=== PATIENT | female | born 1940 | race Caucasian/White ===

== ENCOUNTER 2017-02-15 17:54 | Inpatient (IN) | payer MEDICARE ==
[~2017-02-15] VITALS: Ht 165.1 cm; Wt 56.4 kg
[2017-02-15 17:56] VITALS: BP 146/80; PULSE 78; RESP 20; O2SAT 94
[2017-02-15] MEDS ORDERED: 0.9% Sodium Chloride 1,000 ML IV ONE (18:04)
--- NOTE | 2017-02-15 18:04 | ED.REPORT ---
HPI-General Illness Date of Service February 15, 2017 ED Provider: Dr. Cody Vance The patient is a 76 year old female who presents to the ED via EMS accompanied by her daughter after a suicide attempt 2 days ago. The pt took 800 500 mg acetaminophen tablets approximately 36 hrs ago. EMS was called after she disclosed this information to her family. She initially refused to come into the ED and had to be persuaded by medics, police, and family. Pt states the suicide attempt was due to chronic pain issues. She had trouble refilling her hydrocodone dosage that she has been receiving for 10 years. C/o associated nausea, vomiting, and right sided rib pain due to 5 broken ribs from a recent fall. Pt is a retired MD. Nursing Notes Stated Complaint: SUICIDAL IDEATION Chief Complaint: Psychiatric Complaint Nursing Notes Reviewed: Yes Allergies: Coded Allergies: amoxicillin (Verified Allergy, Severe, Anaphylaxis, 02/15/17) diclofenac (Verified Allergy, Severe, Shortness of Breath, 02/15/17) propranolol (Verified Allergy, Severe, Anaphylaxis, 02/15/17) venom-wasp (Verified Allergy, Severe, Shortness of Breath, 02/15/17) cephalexin (Verified Allergy, Unknown, 02/15/17) Quinolones (Verified Adverse Reaction, Severe, tENDONITIS, 02/15/17) Sulfa (Sulfonamide Antibiotics) (Verified Adverse Reaction, Severe, Rash, 02/15/17) hydromorphone (Verified Adverse Reaction, Severe, Restless leg syndrome, ) immune globulin,gamma (IgG) human (Verified Adverse Reaction, Severe, Restlessness, 02/15/17) latex (Verified Adverse Reaction, Severe, Rash, 02/15/17) oxycodone (Verified Adverse Reaction, Severe, Hallucinations, 02/15/17) pentosan polysulfate sodium (Verified Adverse Reaction, Severe, Diarrhea, 02/15/17) NSAIDS (Non-Steroidal Anti-Inflamma (Verified Adverse Reaction, Unknown, Shortness of Breath, 02/15/17) meloxicam (Verified Adverse Reaction, Unknown, Bowel & Bladder Incontinence, 02/15/17) Scheduled Buspirone (Buspirone) 10 Mg Tablet 10 MG PO BID AM AND PM Calcitriol (Rocaltrol) 0.25 Mcg Capsule 0.25 MCG PO QAM Clonazepam (Clonazepam) 0.5 Mg Tablet 0.5 MG PO TIDWM AM, NOON, EVENING Fluoxetine (Fluoxetine) 10 Mg Capsule 10 MG PO QAM Gabapentin (Gabapentin) 100 Mg Capsule 200 MG PO TID AM, PM, HS Hydrocodone-Acetaminophen 10-325 mg (Hydrocodone-Acetaminophen 10-325 mg) 1 Each Tablet 2 TABLET PO TID AM, NOON, HS Metoclopramide (Metoclopramide) 5 Mg Tablet 5 MG PO BID AM AND PM Modafinil (Modafinil) 200 Mg Tablet 100 MG PO BIDBL AM AND NOON Omeprazole (Omeprazole) 20 Mg Capsule.dr 20 MG PO QAM Prazosin (Prazosin) 2 Mg Capsule 4 MG PO TID AN, NOON, HS Prednisone (PredniSONE) 5 Mg Tab 7.5 MG PO DAILYWM Progesterone,Micronized (Progesterone) 100 Mg Capsule 100 MG PO QAM Thyroid,Pork ([place] Thyroid) 90 Mg Tablet 90 MG PO QAM Zolpidem (Zolpidem) 5 Mg Tablet 5 MG PO HS General Time Seen by MD: 17:50 Chief Complaint Other (suicide attempt) Hx Obtained From: Patient Arrived By: Ambulance Sudden in Onset?: Yes Onset Occurred: 2 days ago (36 hrs) Context of Onset: Other (acetominophin overdose) Symptom Duration: Since onset Location: : Abdomen (right thoracic) Quality: Painful Severity: Current: Mild Recent Healthcare: No recent doctor visit, No recent hospitalization Similar Sx Previous: No Past Medical History Past Medical History denies Past Surgical History denies Smoking History Unknown if Ever Smoker Social History Other Social History: Local resident Ambulatory Status Independent Review of Systems Full Review of Systems Constitutional: Denies: Chills, Fever Respiratory: Denies: Shortness of breath Cardiovascular: Denies: Chest pain GI: Reports: Abdominal pain, Nausea, Vomiting, Denies: Diarrhea Musculoskeletal: Reports: Thoracic pain (right sided rib pain) Psychiatric: Reports: Depression, Suicidal ideation Complete sys rev & neg: except as marked. Physical Exam Vital Signs Vital Signs Date Time Temp Pulse Resp B/P Pulse Ox O2 Delivery O2 Flow Rate FiO2 02/15/17 17:56 37.1 78 20 146/80 94 Room Air Initial VS: Reviewed General/Constitutional: Awake, Alert, Cooperative Head / Eyes: Normocephalic, PERRL Neck: Supple Respiratory / Chest: Atraumatic, Breath sounds = bilat, No respiratory distress Cardiovascular: Heart rate NL, Regular rhythm Heart Sounds / Murmur: Positive: Systolic murmur present.. Abdomen: BS normoactive Upper Extremities Upper Extremity / MS: Full range of motion, No deformity Lower Extremity / Pelvis / MS: Full range of motion, No deformity Neurologic: Oriented X3, Speech NL, No motor deficits, No sensory deficits Psychiatric: Affect NL, Mood NL, Judgment/insight NL appopriate good affect Interpretation & Diagnostics Lab Results Interpretation Result Diagram: 02/15/17 1800 02/15/17 1800 Test 02/15/17 18:00 02/15/17 19:10 White Blood Count 5.2th/mm3 (3.8-10.1) Red Blood Count 3.30mil/mm3 (3.90-5.20) Hemoglobin 11.2g/dL (12.0-15.6) Hematocrit 32.4% (35.0-46.0) Mean Corpuscular Volume 98.2fL (81-100) Mean Corpuscular Hemoglobin 33.9pg (27.0-35.0) Mean Corpuscular Hemoglobin Concent 34.6% (32.0-37.0) Red Cell Distribution Width 15.6% (12.3-15.4) Platelet Count 318bil/L (150-400) Prothrombin Time 15.2sec (8.1-12.5) Prothromb Time International Ratio 1.41ratio Sodium Level 129mEq/L (134-144) Potassium Level 3.6mEq/L (3.5-5.2) Chloride Level 95mEq/L (97-108) Carbon Dioxide Level 18mmol/L (18-29) Blood Urea Nitrogen 15mg/dL (8-27) Creatinine 0.52mg/dL (0.57-1.00) Estimat Glomerular Filtration Rate 165mL/min (>59) Glucose Level 91mg/dL (60-99) Calcium Level 8.3mg/dL (8.5-10.1) Total Bilirubin 0.8mg/dL (0.0-1.2) Aspartate Amino Transf (AST/SGOT) 2719U/L (0-50) Alanine Aminotransferase (ALT/SGPT) 1609U/L (0-32) Alkaline Phosphatase 59U/L (25-165) Total Protein 5.5g/dL (6.4-8.4) Albumin 3.2g/dL (3.4-5.0) Hold Aldana Top Tube Received (Received) Salicylates Level < 3.0ug/mL (30-250) Acetaminophen Level 109.0ug/mL Rx (10-25) Alcohols < 10mg/dL (0-10) Hold Urine Received (Received) Lab Results Interpretation: UA positive for benzos, opiates, and oxycodone ECG Interpretation ECG Interpretation: LVH Time: 18:29 Interpreted by: ED physician Normal ECG Interpretation: Normal sinus rhythm (rate 69), No acute ischemic changes X-Ray Chest Interpretation Chest Xray Interpretation: IMPRESSION: No acute process. Right-sided rib fractures. Dictated by: Hans Beckford M.D. on 02/15/2017 at 20:24 Approved by: Hans Beckford M.D. 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 The history related is of a massive overdose. Her current clinical condition with modest elevations in transaminases suggests either less was ingested or a more recent ingestion. We have contacted poison control, and acetylcysteine was initiated immediately after the patient was evaluated to be admitted to the hospitalist service for further medical evaluation and will require psychiatric evaluation following this. Time of Eval: 18:06 Re-Evaluation/Progress Note: Pharmacy was called immediately after pt interview. Loading dose of acetylcysteine ordered. Consultation #1: Call Returned at: 19:33 Note: Case discussed with poison control. ([phone]) Plan to admit. Consultation #2: Referral / Consult Name: Gabriella Moseley DO Consulted With: Hospitalist Call Returned at: 20:00 Client Leader: Accepts admit Note: Case discussed. Dr. Moseley accepts admit patientl Counseled Regarding: Diagnosis, Lab results, Need for admission Discharge & Departure Primary Impression: Suicide attempt by acetaminophen overdose Encounter type: initial encounter Qualified Code: T39.1X2A - Poisoning by 4- Aminophenol derivatives, intentional self-harm, initial encounter Disposition: ADMITTED TO HOSPITAL Discharge Condition All VS Reviewed: Yes Condition: Stable Referrals: Batsheva Busby MD (PCP) Chely Attestation Portion of this note were transcribed by Rut Bhatt. I, , personally performed the history, physical exam, and medical decision-making: I reviewed and confirmed the accuracy for the information in the transcribed note. Signed by: chely Stacy, 02/15/17 2000 copies to: Batsheva Busby MD, Donald L MD February 15, 2017 18:04 Rut Bhatt February 15, 2017 18:10
[2017-02-15] MEDS ORDERED: Ondansetron 2 mg/mL 2 mL Inj IVPUSH ONE (18:05)
[2017-02-15] MEDS ORDERED: PRAZ2CAP2 PO (18:15)
[2017-02-15] MEDS ORDERED: MODA200T41 PO (18:15)
[2017-02-15] MEDS ORDERED: ZOLP5TAB6 PO (18:15)
[2017-02-15] MEDS ORDERED: FLUO10CA20 PO (18:15)
[2017-02-15] MEDS ORDERED: BUSP10TA2 PO (18:15)
[2017-02-15] MEDS ORDERED: HYDR-3740 PO (18:15)
[2017-02-15] MEDS ORDERED: ACETYLCYSTEINE IV SCH (18:15)
[2017-02-15] MEDS ORDERED: OMEP20CA11 PO (18:15)
[2017-02-15] MEDS ORDERED: PRD5T PO (18:15)
[2017-02-15] MEDS ORDERED: GABA-500 PO (18:15)
[2017-02-15] MEDS ORDERED: KLO5T PO ×2 (18:15→19:39)
[2017-02-15] MEDS ORDERED: MTC5T PO (18:15)
[2017-02-15] MEDS ORDERED: THYR90TA PO (18:15)
[2017-02-15] MEDS ORDERED: PROG100C6 PO (18:15)
[2017-02-15] MEDS ORDERED: CALC0.257 PO ×2 (18:15→19:40)
[2017-02-15] MEDS ORDERED: DEXTROSE 5% IV SCH (18:15)
[2017-02-15] MEDS ORDERED: ACETYLCYSTEINE IV ONE ×3 (18:22→23:30)
[2017-02-15] MEDS ORDERED: DEXTROSE 5% IV ONE ×3 (18:22→23:30)
[2017-02-15 18:24] LABS: Mean Corpuscular Hemoglobin 33.9 pg (27.0-35.0); Mean Corpuscular Volume 98.2 fL (81-100)
[2017-02-15 18:45] LABS: INR 1.41 ratio
--- NOTE | 2017-02-15 20:26 | DRSVH ---
PROCEDURE: X-RAY CHEST ONE VIEW, PORTABLE ([id number]) INDICATIONS: chest wall pain TECHNIQUE: One view of the chest was acquired. COMPARISON: [facility], , RIBS UNILATERAL WITH PA CXR, 02/11/2017, 16:52. FINDINGS: Surgical changes and devices: None. Lungs and pleura: No pleural effusions or pneumothorax. Lungs are clear. Mediastinum: Mediastinal contours appear normal. Heart size is normal. Bones and chest wall: No suspicious bony lesions. Right-sided rib fractures are present, as before. Overlying soft tissues appear unremarkable. IMPRESSION: No acute process. Right-sided rib fractures. Dictated by: Hans Beckford M.D. on 02/15/2017 at 20:24 Approved by: Hans Beckford M.D. on 02/15/2017 at 20:24
[2017-02-15] MEDS ORDERED: Ondansetron 2 mg/mL 2 mL Inj IVPUSH PRN (20:40)
[2017-02-15] MEDS ORDERED: Polyethylene Glycol (PEG) 17 Gm Powder PO PRN (20:40)
[2017-02-15] MEDS ORDERED: Albuterol-Ipratropium 3 mL Inhalation Solution NEB PRN (20:55)
--- NOTE | 2017-02-15 21:03 | PCM.HPMED ---
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 She reports that she has had longstanding chronic pain for many years that was adequately managed with Hydrocodone-acetaminophen 10-325, however she recently changed PCPs to a practice which was not comfortable extending her opiate prescription. In the absence of opiate analgesia her chronic pain acutely worsened, concurrent with several recent falls resulting in 5 broken ribs. She currently feels that her pain is completely unmanageable, her dogs have , her house has been sold and assets distributed amongst her children such that " I have already lost everything I love, so what reason do I have to go on living ". Given all the above the patient took roughly 800 500 mg Acetaminophen tablets approximately 36 hours ago, she did not seek treatment but rather informed her family of her actions 24 hrs after the fact; they were able to convince her to seek medical attention. However, she maintains that she still intends to end her life "As quickly and graciously as possible", and will actively seek to be put on hospice with the eventual goal of accessing with dignity services. In the ED the patient was found to have an Acetaminophen level of 109 uq/ml, which is well above the level which prompts NAC treatment, AST 2719 and ALT 1609 with an INR of 1.41. Patient complains of Nausea, and severe 8-10/10 pain in her ribs and back. She was given the initial loading dose of NAC as well as anti-emetic medication to good effect. Review of Systems: Comprehensive ROS negative except as listed above in the HPI Allergies Coded Allergies: amoxicillin (Verified Allergy, Severe, Anaphylaxis, 02/15/17) diclofenac (Verified Allergy, Severe, Shortness of Breath, 02/15/17) propranolol (Verified Allergy, Severe, Anaphylaxis, 02/15/17) venom-wasp (Verified Allergy, Severe, Shortness of Breath, 02/15/17) cephalexin (Verified Allergy, Unknown, 02/15/17) Quinolones (Verified Adverse Reaction, Severe, tENDONITIS, 02/15/17) Sulfa (Sulfonamide Antibiotics) (Verified Adverse Reaction, Severe, Rash, 02/15/17) hydromorphone (Verified Adverse Reaction, Severe, Restless leg syndrome, ) immune globulin,gamma (IgG) human (Verified Adverse Reaction, Severe, Restlessness, 02/15/17) latex (Verified Adverse Reaction, Severe, Rash, 02/15/17) oxycodone (Verified Adverse Reaction, Severe, Hallucinations, 02/15/17) pentosan polysulfate sodium (Verified Adverse Reaction, Severe, Diarrhea, 02/15/17) NSAIDS (Non-Steroidal Anti-Inflamma (Verified Adverse Reaction, Unknown, Shortness of Breath, 02/15/17) meloxicam (Verified Adverse Reaction, Unknown, Bowel & Bladder Incontinence, 02/15/17) Home Medications Buspirone (Buspirone) 10 Mg Tablet 10 MG PO BID AM AND PM Calcitriol (Rocaltrol) 0.25 Mcg Capsule 0.25 MCG PO QAM Clonazepam (Clonazepam) 0.5 Mg Tablet 0.5 MG PO TIDWM AM, NOON, EVENING Fluoxetine (Fluoxetine) 10 Mg Capsule 10 MG PO QAM Gabapentin (Gabapentin) 100 Mg Capsule 200 MG PO TID AM, PM, HS Hydrocodone-Acetaminophen 10-325 mg (Hydrocodone-Acetaminophen 10-325 mg) 1 Each Tablet 2 TABLET PO TID AM, NOON, HS Metoclopramide (Metoclopramide) 5 Mg Tablet 5 MG PO BID AM AND PM Modafinil (Modafinil) 200 Mg Tablet 100 MG PO BIDBL AM AND NOON Omeprazole (Omeprazole) 20 Mg Capsule.dr 20 MG PO QAM Prazosin (Prazosin) 2 Mg Capsule 4 MG PO TID AN, NOON, HS Prednisone (PredniSONE) 5 Mg Tab 7.5 MG PO DAILYWM Progesterone,Micronized (Progesterone) 100 Mg Capsule 100 MG PO QAM Thyroid,Pork ([place] Thyroid) 90 Mg Tablet 90 MG PO QAM Zolpidem (Zolpidem) 5 Mg Tablet 5 MG PO HS PMH Depression Chronic Pain Insomnia Narcolepsy Hypothyroid GERD Surgical History Denies Family History No relevant family history Social History Occupation: Retired physician Smoking Status: Unknown if Ever Smoker Living Arrangement: Alone Exam Vital Signs Vital Sign - Last Date Time Temp Pulse Resp B/P Pulse Ox O2 Delivery O2 Flow Rate FiO2 02/15/17 17:56 37.1 78 20 146/80 94 Room Air Exam Gen: A/O x3 elderly woman in moderate acute distress secondary to depression and rib pain Neck: Supple, non tender, Full ROM, no lymphadenopathy HEENT: PERRL, EOMI, no scleral icterus, no conjunctival pallor CV: RRR, no murmurs rubs or gallops Resp: Lungs CTA BL, no wheezing rales or rhonchi Chest: Multiple points of lateral rib tenderness to very light palpation Abd: Soft, mild RUQ tenderness to palpation, BS +4Q Extr: No clubbing cyanosis or edema Neuro: CN 2-12 grossly intact, no focal neurologic deficit Psych: Patient appears to be fully decisional without any evidence of altered mental status, mood pleasant and appropriate, answers questions honestly in regards to her ongoing SI, fairly flat affect with businesslike delivery of her reasons for wanting to Lab and Diagnostics Labs Item Value Date Time Red Blood Count 3.30 mil/mm3 L 02/15/17 1800 Red Cell Distribution Width 15.6 % H 02/15/17 1800 Platelet Count 318 nitin/L 02/15/17 1800 Estimat Glomerular Filtration Rate 165 mL/min 02/15/17 1800 Calcium Level 8.3 mg/dL L 02/15/17 1800 Total Bilirubin 0.8 mg/dL 02/15/17 1800 Aspartate Amino Transf (AST/SGOT) 2719 U/L H 02/15/17 1800 Alanine Aminotransferase (ALT/SGPT) 1609 U/L H 02/15/17 1800 Alkaline Phosphatase 59 U/L 02/15/17 1800 Total Protein 5.5 g/dL L 02/15/17 1800 Albumin 3.2 g/dL L 02/15/17 1800 Prothrombin Time 15.2 sec H 02/15/17 1800 Prothromb Time International Ratio 1.41 ratio 02/15/17 1800 Salicylates Level < 3.0 ug/mL L 02/15/17 1800 Acetaminophen Level 109.0 ug/mL Rx H 02/15/17 1800 Alcohols < 10 mg/dL 02/15/17 1800 Result Diagram: 02/15/17 1800 02/15/171799 X-Rays, CTs and MRIs X-RAY CHEST ONE VIEW, PORTABLE IMPRESSION: No acute process. Right-sided rib fractures. Dictated by: Hans Beckford M.D. on 02/15/2017 at 20:24 Approved by: Hans Beckford M.D. on 02/15/2017 at 20:24 . 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 1. Acute liver failure, POA. Active -Secondary to acetaminophen overdose -Treatment as below -Avoid hepatotoxic medications 2. Acetaminophen overdose, POA, acute. Active -Patient with acetaminophen level 109 36 hrs after initial ingestion which is well above NAC treatment threshold -INR 1.41 below threshold for severe hepatic impairment NAC protocol -21 hour IV N-acetylcysteine, initial loading dose of 150 mg/kg for 1 hour, 12.5 mg/kg for 4 hours, and 6.25 mg/kg for 16 hours -The above regimen has been discussed with pharmacy -AST 2719/ALT 1609, will repeat CMP in AM -Zofran 4-8 mg IV Q4 PRN for nausea -Holding hepatotoxic meds, this will need to be addressed following resolution of acute hepato-toxic period of Acetaminophen poisoning as much of her home psychiatric home regimen is being held in the face of active Suicidal ideation 3. Ongoing suicidal ideation, POA, acute. Active -Patient willingly reports that she still intends to kill her self -She has a desire to be placed on hospice and pursue with dignity services -She will benefit from psychiatric consultation tomorrow AM both for counseling and diagnostic services as well as to clarify optimal medication regimen in the setting of hepatic impairment -Social work consult tomorrow AM to address environmental factor contributing to her SI -Sitter for ongoing suicide prevention observation -Palliative care consult for 02/18 if she is still in house, for possible counseling on qualification for with dignity services. 4. Depression, POA, acute on chronic. Active -Holding home Buspar and clonazepam due to hepatic impairment -Continuing Fluoxetine at reduced dose due to hepatic impairment -As above psych consult will be very beneficial to this patient 5. Insomnia with Narcolepsy, POA, chronic. Active -Holding home Zolpidem due to hepatotoxicity, holding home Modafinil as sleep aid is being held -Patient currently mildly somnolent due to overdose so sleep may not be an -Consider Melatonin if sleep is an issue 6. Multiple Rib fractures, POA, acute. Active -Secondary to multiple recent GLFs -MS 1-2 mg Q4 IV PRN for pain control -Consider transition to PO regimen without acetaminophen once nausea resolves -Patient significant fall risk, at least SBA for all transfers -Consider PT evaluation for DC recommendations once acute phase of overdose has resolved. Other chronic conditions managed with home meds -Hypothyroid: Continue home [place] Thyroid 90 mg QAM -GERD: Continue home Omeprazole -COPD: Continue home Prednisone, no outpatient breathing meds on record, will make DuoNeb available PRN Code Status: Patient is obligatory FULL CODE given suicide attempt Disposition: Inpatient, anticipated length of stay >2 midnights due to severity of condition and complexity of treatment plan. Pain Evaluation: Pain not Controlled (Not controlled at time of evaluation, will start MS PRN and re-assess) GI Prophylaxis: Proton Pump Inhibitor VTE Prophylaxis: Other (Patient with hepatic dysfunciton that is likely to inhibit coagulation) VTE Mechanical Devices: Intermittant Pneumatic CD Resuscitation Status: CPR: Attempt Resuscitation Attending Statement The patient was seen and examined together with house staff on 02/15/2017 and I agree with the history, exam and plan as outlined in the note above. copies to: Sharon Gotti MD, David E DO February 15, 2017 21:03 Gabriella Moseley DO February 16, 2017 05:33
[2017-02-15 21:15] VITALS: BP 175/89; PULSE 81; RESP 21; O2SAT 100
[2017-02-15 22:52] VITALS: BP 184/92; PULSE 79; RESP 16; O2SAT 91
[2017-02-16] VITALS (10 sets, daily range): BP systolic 137–166; BP diastolic 82–94; PULSE 74–96; RESP 16–20; O2SAT 92–93
[2017-02-16 04:40] LABS: BASOPHILS % (AUTO) 0.3 % (0-3); EOSINOPHILS % (AUTO) 1.3 % (0-5); MONOCYTES % (AUTO) 1.8 % (4-12); Mean Corpuscular Hemoglobin 33.7 pg (27.0-35.0); Mean Corpuscular Volume 98.9 fL (81-100); NEUTROPHILS % (AUTO) 89.9 % (40-74); Platelet Count 324 bil/L (150-400)
[2017-02-16 04:58] LABS: INR 1.33 ratio
[2017-02-16 05:06] LABS: Magnesium 1.8 mg/dL (1.6-2.6); Phosphorus 1.8 mg/dL (2.5-4.9)
[2017-02-16] MEDS: Pantoprazole 20 mg ER24 Tablet PO SCH (05:57)
[2017-02-16] MEDS: predniSONE 5 mg Tablet PO SCH (08:18)
[2017-02-16] MEDS: FLUoxetine 4 mg/mL 118 mL Solution PO SCH (08:54)
[2017-02-16] MEDS: Alum-Mag Hydrox-Simeth 30 mL Suspension PO PRN (10:12)
--- NOTE | 2017-02-16 14:32 | PCM.PNMED ---
Subjective Date of Service February 16, 2017 Subjective 76-year-old woman with chronic opioid dependent musculoskeletal pain presents with intentional acetaminophen overdose. Chief complaint today is uncontrolled pain due to rib fractures. She reports breaking ribs within the last 2 days due to falls. States that she has been in distress over under treatment with opioid medications for many weeks, which predates her reported rib fractures. She has no cardiorespiratory or abdominal complaints. Exam Vital Signs Vital Sign - Last Date Time Temp Pulse Resp B/P Pulse Ox O2 Delivery O2 Flow Rate FiO2 02/16/17 13:35 37.2 80 18 137/82 92 Room Air Intake and Output 02/15/17 02/15/17 02/16/17 Cumulative From/Thru 15:00 23:00 07:00 02/15/17 17:56 - 02/16/17 05:58 Intake Total 1049 ml 1049 ml Output Total 1200 ml 1200 ml Balance -151 ml -151 ml Intake Oral 350 ml 350 ml IV Total 699 ml 699 ml Output Urine Total 1200 ml 1200 ml # Bowel Movements 0 0 Exam General: Alert, communicative and oriented in no acute distress; moves about frequently, including torso movements without signs of severe discomfort HEENT: sclerae anicteric, oral mucosa moist Neck: no JVD Chest: clear to auscultation Cardiac: S1S2, no murmur 1/ADELSO LUSP murmur Abdomen: BS normal, non-tender Extremities: No edema Neuro: A&O with slightly dissociated affect, no psychomotor retardation, cranial nerves symmetric, motor strength and coordination normal IVs and Medications Medications Reviewed: Medications were reviewed in detail Lab and Diagnostics ALT/AST: 02/15/17 1609/2719 02/16/17 1562/2019 INR: 02/15/17 1.41 02/16/17 1.33 Result Diagram: 02/16/17 0435 02/16/17 0435 X-Rays, CTs and MRIs X-RAY CHEST ONE VIEW, PORTABLE IMPRESSION: No acute process. Right-sided rib fractures. Dictated by: Hans Beckford M.D. on 02/15/2017 at 20:24 Approved by: Hans Beckford M.D. on 02/15/2017 at 20:24 . 12-lead ECG NSR rate 69, no acute ischemic changes Assessment & Plan Acute, Active or High-risk Problems: # Acute liver failure, POA. Active. Due to acetaminophen overdose. ALT/AST at admission is 1609/2719. Inverted ALT/AST ratio indicates chronic liver disease , possibly related to chronic acetaminophen ingestion. Current acetaminophen nomogram is compatible with her history of high-dose acetaminophen ingestion by intention. -Treatment as below - Follow CMP -Avoid hepatotoxic medications; including hepatically metabolized analgesics and psychiatric medications # Acetaminophen overdose, POA, acute. Active. Patient with acetaminophen level 109 at time of admission, 36 hrs after initial ingestion. Well above NAC treatment threshold. INR 1.41 below threshold for severe hepatic impairment NAC protocol - 21 hour IV N-acetylcysteine, initial loading dose of 150 mg/kg for 1 hour, 12.5 mg/kg for 4 hours, and 6.25 mg/kg for 16 hours - Holding hepatotoxic meds, this will need to be addressed following resolution of acute hepato-toxic period of Acetaminophen poisoning as much of her home psychiatric home regimen is being held in the face of active Suicidal ideation # Ongoing suicidal ideation, POA, acute. Active. Patient willingly reports that she still intends to kill her self, if she does not receive further high-dose opioid prescriptions. - Psychiatric consultation - case discussed with Dr. Zelaya - Social work consult tomorrow AM to address environmental factor contributing to her SI - Sitter for ongoing suicide prevention observation - Pelvic dosing adjustment of psychiatric medications # Depression, POA, acute on chronic. Active -Holding home Buspar and clonazepam due to hepatic impairment -Continuing Fluoxetine at reduced dose due to hepatic impairment -As above psych consult will be very beneficial to this patient # Chronic pain and opioid dependence, present on admission, active. Review of lotion prescription database indicates that she filled 170 tablets of 325/ Vicodin. Opioid prescriptions suggest consumption of approximately 10 tablets per day with 3.25 g of daily acetaminophen. Usage does not seem compatible with a prolonged period of opioid deprivation which is what the patient reports. - Avoid hepatically metabolized opioids; fentanyl is preferred but hesitated to use long-acting patch due to her clinical instability - Morphine ER - dose equivalent to her previous hydrocodone would be 90-100 mg/ day - Reduced dose due to hepatic dysfunction - MS contin 15 mg TID, reduce further if encephalopathic - No breakthrough or additional opioids, do not call cross coverage at night to prescribe additional opioids # Insomnia with Narcolepsy, POA, chronic. Active -Holding home Zolpidem due to hepatotoxicity, holding home Modafinil as sleep aid is being held -Patient currently mildly somnolent due to overdose so sleep may not be an -Consider Melatonin if sleep is an issue #. Frequent falling. Multiple Rib fractures, POA, acute. Active. Basis for her falling episodes is unclear. Patient reports undiagnosed "neurological" condition. Opioid sedation likely cause. - PT evaluation for DC recommendations once acute phase of overdose has resolved. Other chronic conditions managed with home meds -Hypothyroid: Continue home [place] Thyroid 90 mg QAM - check TSH only while taking [place] Thyroid -GERD: Continue home Omeprazole -COPD: Continue home Prednisone, no outpatient breathing meds on record, will make DuoNeb available PRN Code Status: Patient is obligatory FULL CODE given suicide attempt Disposition: Inpatient, anticipated length of stay >2 midnights due to severity of condition and complexity of treatment plan. The [facility] consult prior to any discharge or AMA. Pain Evaluation: Pain not Controlled GI Prophylaxis: Proton Pump Inhibitor VTE Prophylaxis: Other (Patient with hepatic dysfunciton that is likely to inhibit coagulation) VTE Mechanical Devices: Intermittant Pneumatic CD Resuscitation Status: CPR: Attempt Resuscitation Time spent 50 minutes including review of data with consultants and examination of drug prescribing database records Tyler Gilbert MD February 16, 2017 14:32
[2017-02-16] MEDS ORDERED: Morphine ER 30 mg (MS Contin) Tablet PO SCH ×2 (20:30→22:30)
[2017-02-16] MEDS: Morphine ER 15 mg (MS Contin) Tablet PO SCH (22:31)
--- NOTE | 2017-02-16 22:54 | PCM.CHPPSY ---
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 Admission Status: Voluntary Provider requesting consult: Tyler Gilbert MD Primary Physician Attending Physician: Gabriella Moseley DO Other Physician: Source of Information: Patient Interview, Chart Review Referral Agency/Hospital [facility] Chief Complaint Chief Complaint Suicide attempt with acetaminophen On admission, the patient reported that she took the overdose as she was concerned about her perceived inadequate management of her chronic pain and of having lost everything worth living for. She reports that she has had longstanding chronic pain for many years that was adequately managed with Hydrocodone-acetaminophen 10-325, however she recently changed PCPs to a practice which was not comfortable extending her opiate prescription (this has subsequently been found to be untrue). The patient did not seek treatment but rather informed her family of her actions 24 hrs after the fact; they were able to convince her to seek medical attention. On further questioning, she indicates that her PCP has indicated a frustration with prescribing opiates but has continued to prescribe them without dosing changes. Although reporting on admission that her increased pain with recent rib fractures was the cause of the overdose, she indicates that it was also to show her anger and frustration with her current provider. Other stressors include the of her dogs, the sale of her home and distribution of her assets to her children. She reported on admission, "I have already lost everything I love, so what reason do I have to go on living". On admission, she indicated that she intended to end her life "As quickly and graciously as possible", and will actively seek to be put on hospice with the eventual goal of accessing with dignity services. Today, the patient reports that if she has an adequate pain management plan and a provider with whom she feels connected, she would not harm herself. She reports a long history of depression and being prescribed fluoxetine for many years. She had been suggested to try duloxetine but could not afford it at the time. She reports using buspirone only "as needed" and has not found it effective and is still using clonazepam for anxiety. She denies symptoms consistent with bipolar disorder, psychosis, or panic attacks. She reports poor sleep for some time, she has lost 50 pounds 10 years ago and 20 pounds in the last month or so. Her energy has been decreased since October. She reports additional loss of support in the community with the care home of her temperature logging operator and her psychiatrist. She reports that her Raynaud's phenomenon in her feet made her unstable resulting in her fall. She reports being followed by Dr. Cody Omer. Presenting Symptoms: Depression (Months) Allergies Coded Allergies: amoxicillin (Verified Allergy, Severe, Anaphylaxis, 02/15/17) diclofenac (Verified Allergy, Severe, Shortness of Breath, 02/15/17) propranolol (Verified Allergy, Severe, Anaphylaxis, 02/15/17) venom-wasp (Verified Allergy, Severe, Shortness of Breath, 02/15/17) cephalexin (Verified Allergy, Unknown, 02/15/17) Quinolones (Verified Adverse Reaction, Severe, tENDONITIS, 02/15/17) Sulfa (Sulfonamide Antibiotics) (Verified Adverse Reaction, Severe, Rash, 02/15/17) hydromorphone (Verified Adverse Reaction, Severe, Restless leg syndrome, ) immune globulin,gamma (IgG) human (Verified Adverse Reaction, Severe, Restlessness, 02/15/17) latex (Verified Adverse Reaction, Severe, Rash, 02/15/17) oxycodone (Verified Adverse Reaction, Severe, Hallucinations, 02/15/17) pentosan polysulfate sodium (Verified Adverse Reaction, Severe, Diarrhea, 02/15/17) NSAIDS (Non-Steroidal Anti-Inflamma (Verified Adverse Reaction, Unknown, Shortness of Breath, 02/15/17) meloxicam (Verified Adverse Reaction, Unknown, Bowel & Bladder Incontinence, 02/15/17) Home Medications Scheduled Buspirone (Buspirone) 10 Mg Tablet 10 MG PO BID (Reported) AM AND PM Last Taken: 10 MG on 02/14/17 1800 Calcitriol (Rocaltrol) 0.25 Mcg Capsule 0.25 MCG PO QAM (Reported) Last Taken: 0.25 MCG on 02/14/17 0800 Clonazepam (Clonazepam) 0.5 Mg Tablet 0.5 MG PO TIDWM (Reported) AM, NOON, EVENING Last Taken: 0.5 MG on 02/14/17 1800 Fluoxetine (Fluoxetine) 10 Mg Capsule 10 MG PO QAM (Reported) Last Taken: 10 MG on 02/14/17 0800 Gabapentin (Gabapentin) 100 Mg Capsule 200 MG PO TID (Reported) AM, PM, HS Last Taken: 200 MG on 02/14/17 2100 Hydrocodone-Acetaminophen 10-325 mg ( Hydrocodone-Acetaminophen 10-325 mg) 1 Each Tablet 2 TABLET PO TID (Reported) AM, NOON, HS Last Taken: 2 TABLETS on 02/15/17 1200 Metoclopramide (Metoclopramide) 5 Mg Tablet 5 MG PO BID (Reported) AM AND PM Last Taken: 5 MG on 02/14/17 1800 Modafinil (Modafinil) 200 Mg Tablet 100 MG PO BIDBL (Reported) AM AND NOON Last Taken: 100 MG on 02/14/17 1200 Omeprazole (Omeprazole) 20 Mg Capsule.dr 20 MG PO QAM (Reported) Last Taken: 20 MG on 02/14/17 0800 Prazosin (Prazosin) 2 Mg Capsule 4 MG PO TID (Reported) AN, NOON, HS Last Taken: 4 MG on 02/14/172099 Prednisone (PredniSONE) 5 Mg Tab 7.5 MG PO DAILYWM (Reported) Last Taken: 7.5 MG on 02/14/17 0800 Progesterone,Micronized (Progesterone) 100 Mg Capsule 100 MG PO QAM (Reported) Last Taken: 100 MG on 02/14/17 0800 Thyroid,Pork ([place] Thyroid) 90 Mg Tablet 90 MG PO QAM (Reported) Last Taken: 90 MG on 02/14/17 0800 Zolpidem (Zolpidem) 5 Mg Tablet 5 MG PO HS (Reported) Last Taken: 5 MG on 02/14/17 2100 Discontinued Medications Calcitriol (Rocaltrol) 0.25 Mcg Capsule 0.25 MCG PO DAILY (Reported) Last Taken: 0.25 MCG on 02/15/17 0800 Clonazepam (Clonazepam) 0.5 Mg Tablet 0.5 MG PO TIDWM (Reported) Last Taken: 0.5 MG on 02/14/17 1800 Psychiatric Treatment History Age at onset: over 10 years ago. 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 Number of Attempts:2 Date of Last Attempt: 02/13/17 Tylenol OD noted above. Hx non-suicidal Self-Injury Hx non-suicidal Self-Injury?: No Hx Violence Towards Other Hx violence towards others?: No Past Medical History Past Medical/Surgical History Current and Past Current/Past: Depression Chronic Pain Insomnia Narcolepsy Hypthyroidism GERD Currently ?: No Hx Hospitalization: Yes (Childbirth) Hx Surgeries: Yes (Back surgery, eye surgery, laparotomy (IUD removal), tonsillectomy) Hx Anesthesia Reactions: No Past Surgical History: Other (as above) Family History: Cancer (Prostate) Fam Hx Mental Health Disorder: Schizophrenia (father's brother who suicided), Other (sister with personality issues/fights) Past Social History Family: ( x 20 years, x 20 years.), Children ( daughter 46, son 40), Other (partnered) Living Arrangement: Independent [employer] 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 Patient Education Level: Other (Medical school) Patient Service: No Patient Funding Source: Other (Social Security) Alcohol: Rare (1/4 can beer per week) Hx Substance Use: No Substance Use Type: None Mental Status Exam Vital Signs Vital Signs Date Time Temp Pulse Resp B/P Pulse Ox O2 Delivery O2 Flow Rate FiO2 02/16/17 21:09 37.1 74 20 158/88 92 Room Air 02/16/17 20:10 86 20 93 Room Air 02/16/17 20:00 96 Appearance: Neat/well groomed Attitude: Pleasant, Cooperative Behavior: Other (Some pain behaviors noted when adjusting, rarely absent) Affect: Restricted Mood: Dysthymic, Other ("family here most of the day, helpful, but exhausting") Thought Process/Associations: Logical/Sequential, Goal Directed Speech Production: Normal Speech Rate: Normal Speech Articulation: Normal Thought Content: Negativistic Danger to Self/Suicidal Ideati: None Danger to Others: None Delusions: Thought Insertion (Denies), Thought Broadcasting (Denies), Thought withdrawal (Denies), Paranoid (Denies) Hallucinations: Auditory (Denies), Visual (Denies) Consciousness: Alert Orientation: Person, Place, Date, Situation Memory: Registration (Impaired 3/3 at 0 mins, 2/3 at 3 mins.), Short Term Memory (Impaired, serial 7's only to 86, WORLD -->DRLOW), Filer Metal Patterns Memory ( Intact), Method of memory testing (Item recall; immediate & 3 min) Estimate Intellectual Function: Above Average Basis for IQ estimate: Awareness current events, Word use/vocabulary, Educational history, Employment history Attention/Concentration & Cogn: Grossly Intact Cognitive Testing Method: Proverb interpretation, Serial computations, Spelling forward & backward Insight: Good Judgement: Limited Result Diagram: 02/16/17 8612 02/16/17 7803 Mental Health Plan 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 The patient has been treated for acetaminophen overdose and LFTs, acetaminophen levels dropping. Patient states this suicide attempt was only a gesture; however, given her education and knowledge, if the amounts ingested are accurately reported, this was certainly a suicide attempt. The patient had some cognitive impairment on mental status exam, including clock- drawing that appeared, at first glance, correct, but patient had confused which hand was hour and which was minute. It is unclear whether these changes are due to opiate change, mild encephalopathy or neurocognitive changes. At the present time the patient is reporting that if she were to have a solid treatment plan and medication management and referral to new providers, she would not want to end her life. The patient had previously been unable to afford duloxetine, but now available as a [employer] coupon for $17 for 1 month supply and patient willing to start. In the environment of liver impairment, the SSRIs are considered preferred agents with no change in loading/initial dose , but if there is persistent damage end dose may be lower; paroxetine and fluoxetine tend to have more drug interactions. Duloxetine clearance can be significantly reduced in the presence of cirrhosis and persisting liver damage. Therapy with buspirone is not recommended in the context of severe liver impairment. [place] AXIS I: Major depression, recurrent, by history Anxiety disorder unspecified Rule out neuro cognitive disorder, mild AXIS II: Defer AXIS III: Acetaminophen overdose, see PMHx AXIS IV: Severe AXIS V: GAF 35 Treatments 1. Recommend restarting fluoxetine at 5mg and when hepatic function is more clear, titrate (already initiated). 2. Hold buspirone until liver function has returned to normal. 3. Consider switch from fluoxetine to duloxetine when liver function has returned to normal. 4. Continue with 1:1 for safety 5. Advise having recommendation for other PCP and to have pain management plan prior to discharge, 6. Retest mental status after she has returned to baseline to assess for neurocognitive disorder. 7. Patient would be appropriate for a geropsychiatric facility once medically stable ([facility] can not meet her physical needs) 8. Refer to DM on discharge if patient declining inpatient treatment given inconsistent pattern of reporting, long standing depression, and significant suicide attempt. 9. Please contact psychiatry for further recommendations or questions. Momo Zelaya MD February 16, 2017 22:54
[2017-02-17] VITALS (7 sets, daily range): BP systolic 120–162; BP diastolic 69–91; PULSE 71–110; RESP 16; O2SAT 90–93
[2017-02-17] MEDS: Morphine ER 15 mg (MS Contin) Tablet PO SCH ×3 (06:38→22:09)
[2017-02-17] MEDS: Pantoprazole 20 mg ER24 Tablet PO SCH (06:39)
[2017-02-17] MEDS: FLUoxetine 4 mg/mL 118 mL Solution PO SCH (08:51)
[2017-02-17] MEDS: predniSONE 5 mg Tablet PO SCH (08:52)
[2017-02-17] MEDS: Alum-Mag Hydrox-Simeth 30 mL Suspension PO PRN ×2 (11:09→22:13)
--- NOTE | 2017-02-17 14:25 | PCM.PNMED ---
Subjective Date of Service February 17, 2017 Subjective She continues to complain of a lot of pain over the right side of her rib cage for multiple rib fractures from a fall about 10 days ago. Long talk regarding opiates. She denies ever asking for extra opiates from her primary care doctor. She also denies depression but notes a history of sadness. She denies any cough or dyspnea. She does deny nausea or abdominal pain. No diarrhea. No overnight events Exam Vital Signs Vital Sign - Last Date Time Temp Pulse Resp B/P Pulse Ox O2 Delivery O2 Flow Rate FiO2 02/17/17 13:15 110 16 120/74 91 Room Air 02/17/17 08:02 37.1 Intake and Output 02/16/17 02/16/17 02/17/17 Cumulative From/Thru 15:00 23:00 07:00 02/15/17 17:56 - 02/17/17 04:49 Intake Total 740 ml 350 ml 2139 ml Output Total 1250 ml 2450 ml Balance 740 ml -900 ml -311 ml Intake Oral 350 ml 700 ml IV Total 740 ml 1439 ml Output Urine Total 1250 ml 2450 ml # Bowel Movements 0 0 Exam Alert and oriented -3, no distress. Fluent speech Anicteric sclera. Lungs are clear with normal rate and effort Heart is regular without murmur gallop or rub Abdomen soft nontender, flat Extremities are free of edema. Skin is free of rash or lesions. IVs and Medications Medications Reviewed: Medications were reviewed in detail Lab and Diagnostics Result Diagram: 02/16/17 0435 02/17/17 0420 X-Rays, CTs and MRIs X-RAY CHEST ONE VIEW, PORTABLE IMPRESSION: No acute process. Right-sided rib fractures. Dictated by: Hans Beckford M.D. on 02/15/2017 at 20:24 Approved by: Hans Beckford M.D. on 02/15/2017 at 20:24 . 12-lead ECG NSR rate 69, no acute ischemic changes Assessment & Plan Acute, Active or High-risk Problems: # Acute liver failure, POA. Active and improving by liver function tests.. Due to acetaminophen overdose. ALT/AST at admission is 1609/2719. Inverted ALT/ AST ratio indicates chronic liver disease, possibly related to chronic acetaminophen ingestion. Current acetaminophen nomogram is compatible with her history of high-dose acetaminophen ingestion by intention. -Treatment as below - Follow CMP -Avoid hepatotoxic medications; including hepatically metabolized analgesics and psychiatric medications # Acetaminophen overdose, POA, acute improving by liver function tests. Active. Patient with acetaminophen level 109 at time of admission, 36 hrs after initial ingestion. Well above NAC treatment threshold. INR 1.41 below threshold for severe hepatic impairment NAC protocol - 21 hour IV N-acetylcysteine, initial loading dose of 150 mg/kg for 1 hour, 12.5 mg/kg for 4 hours, and 6.25 mg/kg for 16 hours - Holding hepatotoxic meds, this will need to be addressed following resolution of acute hepato-toxic period of Acetaminophen poisoning as much of her home psychiatric home regimen is being held in the face of active Suicidal ideation # Ongoing suicidal ideation, POA, acute. Active. Patient willingly reports that she still intends to kill her self, if she does not receive further high-dose opioid prescriptions. - Psychiatric consultation - case discussed with Dr. Zelaya - Social work consult tomorrow AM to address environmental factor contributing to her SI - Sitter for ongoing suicide prevention observation - Pelvic dosing adjustment of psychiatric medications Appreciate psychiatry's input and will resume fluoxetine at low dose. # Depression, POA, acute on chronic. Active -Holding home Buspar and clonazepam due to hepatic impairment -Continuing Fluoxetine at reduced dose due to hepatic impairment -As above psych consult will be very beneficial to this patient, plan is as above. # Chronic pain and opioid dependence, present on admission, active. Review of lotion prescription database indicates that she filled 170 tablets of 325/ Vicodin. Opioid prescriptions suggest consumption of approximately 10 tablets per day with 3.25 g of daily acetaminophen. Usage does not seem compatible with a prolonged period of opioid deprivation which is what the patient reports. - Avoid hepatically metabolized opioids; fentanyl is preferred but hesitated to use long-acting patch due to her clinical instability - Morphine ER - dose equivalent to her previous hydrocodone would be 90-100 mg/ day - Reduced dose due to hepatic dysfunction - MS contin 15 mg TID, reduce further if encephalopathic - No breakthrough or additional opioids, do not call cross coverage at night to prescribe additional opioids No change to this working plan of stable opiates. # Insomnia with Narcolepsy, POA, chronic. Active stable -Holding home Zolpidem due to hepatotoxicity, holding home Modafinil as sleep aid is being held -Patient currently mildly somnolent due to overdose so sleep may not be an -Consider Melatonin if sleep is an issue #. Frequent falling. Multiple Rib fractures, POA, acute. Active. Basis for her falling episodes is unclear. Patient reports undiagnosed "neurological" condition. Opioid sedation likely cause. - PT evaluation for DC recommendations once acute phase of overdose has resolved. -Hypothyroid, POA and stable, POA and stable: Continue home [place] Thyroid 90 mg QAM - check TSH only while taking [place] Thyroid -GERD: Continue home Omeprazole -COPD, POA and stable: Continue home Prednisone, no outpatient breathing meds on record, will make DuoNeb available PRN Code Status: Patient is obligatory FULL CODE given suicide attempt Disposition: Inpatient, anticipated length of stay >2 midnights due to severity of condition and complexity of treatment plan. The [facility] consult prior to any discharge or AMA. GI Prophylaxis: Proton Pump Inhibitor VTE Prophylaxis: Other (Patient with hepatic dysfunciton that is likely to inhibit coagulation) VTE Mechanical Devices: Intermittant Pneumatic CD Resuscitation Status: CPR: Attempt Resuscitation Erasmo Xie MD February 17, 2017 14:25
[2017-02-18] VITALS (9 sets, daily range): BP systolic 129–156; BP diastolic 67–82; PULSE 73–90; RESP 16–22; O2SAT 91–96
[2017-02-18] MEDS: Pantoprazole 20 mg ER24 Tablet PO SCH (06:36)
[2017-02-18] MEDS: Morphine ER 15 mg (MS Contin) Tablet PO SCH ×3 (06:36→22:27)
[2017-02-18] MEDS: FLUoxetine 4 mg/mL 118 mL Solution PO SCH (08:48)
[2017-02-18] MEDS: predniSONE 5 mg Tablet PO SCH (08:49)
--- NOTE | 2017-02-18 18:09 | PCM.PNMED ---
Subjective Date of Service February 18, 2017 Subjective She denies being suicidal today. She has whole body pain. No problems with dyspnea cough or sore throat. No chest pain. No bowel pain nausea or diarrhea. Overnight events Exam Vital Signs Vital Sign - Last Date Time Temp Pulse Resp B/P Pulse Ox O2 Delivery O2 Flow Rate FiO2 02/18/17 16:01 37.0 84 18 156/81 92 Room Air Intake and Output 02/17/17 02/17/17 02/18/17 Cumulative From/Thru 15:00 23:00 07:00 02/15/17 17:56 - 02/18/17 06:00 Intake Total 800 ml 600 ml 3539 ml Output Total 725 ml 1150 ml 4325 ml Balance 75 ml -550 ml -786 ml Intake Oral 800 ml 600 ml 2100 ml IV Total 1439 ml Output Urine Total 725 ml 1150 ml 4325 ml # Voids 5 5 10 # Bowel Movements 0 0 0 Exam Alert and oriented -3, no distress. Fluent speech Anicteric sclera. Lungs are clear with normal rate and effort Heart is regular without murmur gallop or rub Abdomen soft nontender, flat Extremities are free of edema. Skin is free of rash or lesions. IVs and Medications Medications Reviewed: Medications were reviewed in detail Lab and Diagnostics Result Diagram: 02/16/17 0435 02/18/17 0350 X-Rays, CTs and MRIs X-RAY CHEST ONE VIEW, PORTABLE IMPRESSION: No acute process. Right-sided rib fractures. Dictated by: Hans Beckford M.D. on 02/15/2017 at 20:24 Approved by: Hans Beckford M.D. on 02/15/2017 at 20:24 . 12-lead ECG NSR rate 69, no acute ischemic changes Assessment & Plan Acute, Active or High-risk Problems: # Acute liver failure, POA. Active and continues to improve # Acetaminophen overdose, POA, acute improving by liver function tests. Active. Patient with acetaminophen level 109 at time of admission, 36 hrs after initial ingestion. Well above NAC treatment threshold. INR 1.41 below threshold for severe hepatic impairment NAC protocol - 21 hour IV N-acetylcysteine, initial loading dose of 150 mg/kg for 1 hour, 12.5 mg/kg for 4 hours, and 6.25 mg/kg for 16 hours - Holding hepatotoxic meds, this will need to be addressed following resolution of acute hepato-toxic period of Acetaminophen poisoning as much of her home psychiatric home regimen is being held in the face of active Suicidal ideation # Ongoing suicidal ideation, POA, acute. Patient willingly reports that she still intends to kill her self, if she does not receive further high-dose opioid prescriptions. - Psychiatric consultation - case discussed with Dr. Zelaya - Social work consult tomorrow AM to address environmental factor contributing to her SI - Sitter for ongoing suicide prevention observation - Pelvic dosing adjustment of psychiatric medications The patient will be medically clear for mental health evaluation and the [facility] evaluation tomorrow, February 19 # Depression, POA, acute on chronic. Active -Holding home Buspar and clonazepam due to hepatic impairment -Continuing Fluoxetine at reduced dose due to hepatic impairment -As above psych consult will be very beneficial to this patient, plan is as above. Continue fluoxetine at current dosing. # Chronic pain and opioid dependence, present on admission, active. Review of lotion prescription database indicates that she filled 170 tablets of 325/ Vicodin. Opioid prescriptions suggest consumption of approximately 10 tablets per day with 3.25 g of daily acetaminophen. Usage does not seem compatible with a prolonged period of opioid deprivation which is what the patient reports. - Avoid hepatically metabolized opioids; fentanyl is preferred but hesitated to use long-acting patch due to her clinical instability - Morphine ER - dose equivalent to her previous hydrocodone would be 90-100 mg/ day - Reduced dose due to hepatic dysfunction - MS contin 15 mg TID, reduce further if encephalopathic - No breakthrough or additional opioids, do not call cross coverage at night to prescribe additional opioids No change to this working plan of stable opiates. # Insomnia with Narcolepsy, POA, chronic. Active stable -Holding home Zolpidem due to hepatotoxicity, holding home Modafinil as sleep aid is being held -Patient currently mildly somnolent due to overdose so sleep may not be an -Consider Melatonin if sleep is an issue #. Frequent falling. Multiple Rib fractures, POA, acute. Active. Basis for her falling episodes is unclear. Patient reports undiagnosed "neurological" condition. Opioid sedation likely cause. - PT evaluation for DC recommendations once acute phase of overdose has resolved. -Hypothyroid, POA and stable, POA and stable: Continue home [place] Thyroid 90 mg QAM - check TSH only while taking [place] Thyroid -GERD: Continue home Omeprazole -COPD, POA and stable: Continue home Prednisone, no outpatient breathing meds on record, will make DuoNeb available PRN Code Status: Patient is obligatory FULL CODE given suicide attempt Disposition: Inpatient, anticipated length of stay >2 midnights due to severity of condition and complexity of treatment plan. The [facility] consult prior to any discharge or AMA. With the patient and her son and [id number] at length today. Also had a conversation with her primary care physician for about 15 minutes regarding the complexities and frustrations of caring for the patient. GI Prophylaxis: Proton Pump Inhibitor VTE Prophylaxis: Other (Patient with hepatic dysfunciton that is likely to inhibit coagulation) VTE Mechanical Devices: Intermittant Pneumatic CD Resuscitation Status: CPR: Attempt Resuscitation Erasmo Xie MD February 18, 2017 18:09
[2017-02-19] VITALS (9 sets, daily range): BP systolic 135–158; BP diastolic 75–90; PULSE 64–101; RESP 16–22; O2SAT 92–94
[2017-02-19] MEDS: Morphine ER 15 mg (MS Contin) Tablet PO SCH ×3 (06:27→23:02)
[2017-02-19] MEDS: Pantoprazole 20 mg ER24 Tablet PO SCH (06:27)
--- NOTE | 2017-02-19 08:29 | PCM.PNMED ---
Subjective Date of Service February 19, 2017 Subjective She denies being suicidal. No abdominal pain, nausea or diarrhea. No chest pain other than when moving or taking a deep breath from her rib fractures. No shortness of breath. No overnight events Exam Vital Signs Vital Sign - Last Date Time Temp Pulse Resp B/P Pulse Ox O2 Delivery O2 Flow Rate FiO2 02/19/17 07:19 36.9 64 21 158/85 94 Room Air Intake and Output 02/18/17 02/18/17 02/19/17 Cumulative From/Thru 15:00 23:00 07:00 02/15/17 17:56 - 02/19/17 06:31 Intake Total 1556 ml 963 ml 6058 ml Output Total 1701 ml 1280 ml 7306 ml Balance -145 ml -317 ml -1248 ml Intake Oral 1556 ml 963 ml 4619 ml IV Total 1439 ml Output Urine Total 1701 ml 1280 ml 7306 ml # Voids 3 15 28 # Bowel Movements 1 2 3 Exam Alert and oriented -3, no distress. Fluent speech Anicteric sclera. Lungs are clear with normal rate and effort Heart is regular without murmur gallop or rub Abdomen soft nontender, flat Extremities are free of edema. Skin is free of rash or lesions. IVs and Medications Medications Reviewed: Medications were reviewed in detail Lab and Diagnostics Result Diagram: 02/16/17 0435 02/18/17 0350 X-Rays, CTs and MRIs X-RAY CHEST ONE VIEW, PORTABLE IMPRESSION: No acute process. Right-sided rib fractures. Dictated by: Hans Beckford M.D. on 02/15/2017 at 20:24 Approved by: Hans Beckford M.D. on 02/15/2017 at 20:24 . 12-lead ECG NSR rate 69, no acute ischemic changes Assessment & Plan Acute, Active or High-risk Problems: # Acute liver failure, POA. Active and continues to improve. Her LFTs are dramatically improved but still not under 200. We will follow these for 1 additional day in the medically clear. # Acetaminophen overdose, POA, acute improving by liver function tests. Active. Patient with acetaminophen level 109 at time of admission, 36 hrs after initial ingestion. Well above NAC treatment threshold. INR 1.41 below threshold for severe hepatic impairment NAC protocol - 21 hour IV N-acetylcysteine, initial loading dose of 150 mg/kg for 1 hour, 12.5 mg/kg for 4 hours, and 6.25 mg/kg for 16 hours - Holding hepatotoxic meds, this will need to be addressed following resolution of acute hepato-toxic period of Acetaminophen poisoning as much of her home psychiatric home regimen is being held in the face of active Suicidal ideation She denies suicidal ideation today and but will need a mental health evaluation from the [facility] time of the medically clear which will likely be tomorrow morning February 20. # Suicidal ideation, POA, resolved her report today.. - Psychiatric consultation - case discussed with Dr. Zelaya - Social work consult tomorrow AM to address environmental factor contributing to her SI - Sitter for ongoing suicide prevention observation -No changed antidepressant dosing at this time. # Depression, POA, acute on chronic. Active and stable -Holding home Buspar and clonazepam due to hepatic impairment -Continuing Fluoxetine at reduced dose due to hepatic impairment -As above psych consult will be very beneficial to this patient, plan is as above. Continue fluoxetine at current dosing. # Chronic pain and opioid dependence, present on admission, active. Review of lotion prescription database indicates that she filled 170 tablets of 325/ Vicodin. Opioid prescriptions suggest consumption of approximately 10 tablets per day with 3.25 g of daily acetaminophen. Usage does not seem compatible with a prolonged period of opioid deprivation which is what the patient reports. - Avoid hepatically metabolized opioids; fentanyl is preferred but hesitated to use long-acting patch due to her clinical instability - Morphine ER - dose equivalent to her previous hydrocodone would be 90-100 mg/ day - Reduced dose due to hepatic dysfunction - MS contin 15 mg TID, reduce further if encephalopathic - No breakthrough or additional opioids, do not call cross coverage at night to prescribe additional opioids No change to this working plan of stable opiates. # Insomnia with Narcolepsy, POA, chronic. Active stable -Holding home Zolpidem due to hepatotoxicity, holding home Modafinil as sleep aid is being held -Patient currently mildly somnolent due to overdose so sleep may not be an -Consider Melatonin if sleep is an issue #. Frequent falling. Multiple Rib fractures, POA, acute. Active. Basis for her falling episodes is unclear. Patient reports undiagnosed "neurological" condition. Opioid sedation likely cause. - PT evaluation for DC recommendations once acute phase of overdose has resolved. -Hypothyroid, POA and stable, POA and stable: Continue home [place] Thyroid 90 mg QAM - check TSH only while taking [place] Thyroid -GERD: Continue home Omeprazole -COPD, POA and stable: Continue home Prednisone, no outpatient breathing meds on record, will make DuoNeb available PRN Code Status: Patient is obligatory FULL CODE given suicide attempt Disposition: Inpatient, anticipated length of stay >2 midnights due to severity of condition and complexity of treatment plan. The [facility] consult prior to any discharge or AMA. We will repeat liver functions on February 20, if improved will medically cleared have the [facility] evaluate her for voluntary versus inpatient treatment if feasible or indicated at that time. GI Prophylaxis: Proton Pump Inhibitor VTE Prophylaxis: Other (Patient with hepatic dysfunciton that is likely to inhibit coagulation) VTE Mechanical Devices: Intermittant Pneumatic CD Resuscitation Status: CPR: Attempt Resuscitation Erasmo Xie MD February 19, 2017 08:29
[2017-02-19] MEDS: FLUoxetine 4 mg/mL 118 mL Solution PO SCH (08:41)
[2017-02-19] MEDS: predniSONE 5 mg Tablet PO SCH (08:42)
--- NOTE | 2017-02-19 15:43 | PCM.PNPSY ---
Subjective Date of Service February 19, 2017 Subjective The patient reports that she is feeling better and, "my ribs feel a lot better. " She indicated her surprise that her family were upset with her recent suicide attempt and stated that she thought they were on the same page with her regarding being in charge of one's own [place]. She is since learned that this was not true. She had not that she was not suicidal currently but, "I don't feel I am violated by ." She also indicated that she felt it was her right to take her own life should she wish. The patient was still somewhat equivocal as she did not know whether her outpatient provider would continue to treat her or in what fashion given her recent overdose. We discussed increasing the gabapentin to 300 mg 3 times a day with 300 mg after bedtime for breakthrough pain. The patient was oriented to January 21. She indicated that part of the reason she stopped her practice was she was noticing a decline in her cognition. She reports difficulty with determining whether his followers Spring and will invert numbers now without history of dyslexia. She reports her neurologist, Dr. Cody Omer, is aware that his not indicated in the need for treatment. She reports that she will have a follow-up appointment with him at the end of the month. She reports she is looking forward to a number of things in the future including spending time on their boat with her significant other, spending time by the water, and using her camera. Sleep: "Terrible due to pain" Appetite: "dramatically improved." Suicidal and homicidal ideation: Denies Auditory hallucinations: Denies Visual hallucinations: Denies Other Psychotic Symptoms: N/A Anxiety: Elevated due to her children being angry at her Depression: Increase to 2 grief over hurting her children Current Medications Current Medications Melatonin 5 mg HS PRN PO Last administered on 02/19/17t 03:09; Admin Dose 5 MG ; Start 02/19/17 at 02:10 Mental Status Exam Vital Signs Vital Signs Date Time Temp Pulse Resp B/P Pulse Ox O2 Delivery O2 Flow Rate FiO2 02/19/17 14:00 101 16 93 Room Air 02/19/17 11:27 36.9 75 20 135/75 94 Room Air 02/19/17 10:24 69 02/19/17 08:49 70 Appearance: Neat/well groomed Attitude: Pleasant, Cooperative Behavior: Other (reduced pain behaviors noted) Affect: Restricted Mood: Dysthymic, Anxious Thought Process/Associations: Logical/Sequential, Goal Directed Speech Production: Normal Speech Rate: Normal Speech Articulation: Normal Thought Content: Negativistic Danger to Self/Suicidal Ideati: None Danger to Others: None Hallucinations: Auditory (Denies), Visual (Denies) Consciousness: Alert Orientation: Person, Place, Situation Memory: Short Term Memory (Impaired), Retirement Memory (Impaired) Estimate Intellectual Function: Above Average Basis for IQ estimate: Awareness current events, Word use/vocabulary, Educational history, Employment history Attention/Concentration & Cogn: Grossly Intact Cognitive Testing Method: Proverb interpretation, Serial computations, Spelling forward & backward Insight: Good Judgement: Limited Result Diagram: 02/16/17 0435 02/19/17 0845 Mental Health Plan 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 The patient has been treated for acetaminophen overdose and LFTs, acetaminophen levels dropping. Patient states this suicide attempt was only a gesture; however, given her education and knowledge, if the amounts ingested are accurately reported, this was certainly a suicide attempt. The patient had some cognitive impairment on mental status exam, including clock- drawing that appeared, at first glance, correct, but patient had confused which hand was hour and which was minute. It is unclear whether these changes are due to opiate change, mild encephalopathy or neurocognitive changes. At the present time the patient is reporting that if she were to have a solid treatment plan and medication management and referral to new providers, she would not want to end her life. The patient had previously been unable to afford duloxetine, but now available as a [employer] coupon for $17 for 1 month supply and patient willing to start. In the environment of liver impairment, the SSRIs are considered preferred agents with no change in loading/initial dose , but if there is persistent damage end dose may be lower; paroxetine and fluoxetine tend to have more drug interactions. Duloxetine clearance can be significantly reduced in the presence of cirrhosis and persisting liver damage. Therapy with buspirone is not recommended in the context of severe liver impairment. As noted in discussion, patient agreeable to increasing gabapentin and fluoxetine. Given the patient's inconsistent reports around and suicide and giving reasons to live, it would be prudent to continue one to one observation while she is in the hospital. She is still concerned about who will provide her outpatient care and this may trigger suicidal behavior should the provider would not be willing to provide opiates. [place] AXIS I: Major depression, recurrent, by history Anxiety disorder unspecified Rule out neuro cognitive disorder, mild AXIS II: Defer AXIS III: Acetaminophen overdose, see PMHx AXIS IV: Severe AXIS V: GAF 35 Treatments 1. Increase fluoxetine to 10 mg, 2. Hold buspirone until liver function has returned to normal. 3. Consider switch from fluoxetine to duloxetine when liver function has returned to normal. 4. Continue with 1:1 for safety 5. Advise having recommendation for other PCP and to have pain management plan prior to discharge, 6. Retest mental status after she has returned to baseline to assess for neurocognitive disorder. 7. Patient would be appropriate for a geropsychiatric facility once medically stable ([facility] can not meet her physical needs) 8. Refer to DM on discharge if patient declining inpatient treatment given inconsistent pattern of reporting, long standing depression, and significant suicide attempt. 9. We will increase gabapentin with nighttime when necessary as well to hopefully address pain breakthrough 10. Please contact psychiatry for further recommendations or questions. Momo Zelaya MD February 19, 2017 15:43
[2017-02-20] VITALS (7 sets, daily range): BP systolic 130–157; BP diastolic 65–81; PULSE 71–91; RESP 16–18; O2SAT 92–94
[2017-02-20] MEDS: Pantoprazole 20 mg ER24 Tablet PO SCH (06:31)
[2017-02-20] MEDS: Morphine ER 15 mg (MS Contin) Tablet PO SCH ×3 (06:31→22:16)
[2017-02-20] MEDS: predniSONE 5 mg Tablet PO SCH (08:33)
[2017-02-20 13:26] LABS: INR 0.95 ratio
--- NOTE | 2017-02-20 13:26 | PCM.DIMED ---
Discharge Instructions Date of Service Feb 20, 2017 Dates of Hospitalization February 15, 2017 at 20:29 Discharge Diagnosis Discharge Diagnosis Suicide attempt by Tylenol overdose, transaminitis Diet Discharge Diet: No restrictions Activity Discharge Activity: No restrictions Patient Instructions Follow-up plan See PCP KALEN, needs follow-up LFTs Follow-up Provider: Sharon Gotti MD Follow-up with PCP in: Other (all for appointment) Malcolm Cunha MD Feb 20, 2017 13:26
[2017-02-20 13:31] LABS: Bilirubin, Direct 0.2 mg/dL (0.0-0.3)
[2017-02-20] MEDS ORDERED: TEMA7.5C PO (13:32)
[2017-02-20] MEDS ORDERED: MORP-32 PO (13:32)
[2017-02-20] MEDS ORDERED: GABA300C PO ×2 (13:32)
--- NOTE | 2017-02-20 14:50 | PCM.DC.MED ---
Discharge Summary Date of Service Feb 20, 2017 Dates of Hospitalization Date of Hospital Admission February 15, 2017 at 20:29 Date of Discharge: Feb 20, 2017 Providers: Admitting Physician: Gabriella Moseley DO Primary Care Physician: Sharon Gotti MD Attending Physician: Gabriella Moseley DO Diagnosis at Time of Discharge Diagnosis at Time of Discharge Suicide attempt by Tylenol overdose, transaminitis, neuropathy/chronic pain Consultations Psychiatry, Dr. Gong Procedures XRay, CTs & MRIs X-RAY CHEST ONE VIEW, PORTABLE IMPRESSION: No acute process. Right-sided rib fractures. Dictated by: Hans Beckford M.D. on 02/15/2017 at 20:24 Approved by: Hans Beckford M.D. on 02/15/2017 at 20:24 . 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 She reports that she has had longstanding chronic pain for many years that was adequately managed with Hydrocodone-acetaminophen 10-325, however she recently changed PCPs to a practice which was not comfortable extending her opiate prescription. In the absence of opiate analgesia her chronic pain acutely worsened, concurrent with several recent falls resulting in 5 broken ribs. She currently feels that her pain is completely unmanageable, her dogs have , her house has been sold and assets distributed amongst her children such that " I have already lost everything I love, so what reason do I have to go on living ". Given all the above the patient took roughly 800 500 mg Acetaminophen tablets approximately 36 hours ago, she did not seek treatment but rather informed her family of her actions 24 hrs after the fact; they were able to convince her to seek medical attention. However, she maintains that she still intends to end her life "As quickly and graciously as possible", and will actively seek to be put on hospice with the eventual goal of accessing with dignity services. In the ED the patient was found to have an Acetaminophen level of 109 uq/ml, which is well above the level which prompts NAC treatment, AST 2719 and ALT 1609 with an INR of 1.41. Patient complains of Nausea, and severe 8-10/10 pain in her ribs and back. She was given the initial loading dose of NAC as well as anti-emetic medication to good effect. Hospital Course 76-year-old female who intentionally took Tylenol overdose liver functions were elevated got course of N-acetylcysteine and never had elevated INR. 02/19 she still had fairly significant transaminitis and detectable levels of acetaminophen however today 02/20 that has resolved. I spoke with poison control today 02/20 and they reassured me that if the acetaminophen was undetectable it may still take a little while for LFTs to totally normalized. The fact that they are trending downward is very reassuring and this should be followed up in the outpatient setting. At this point in time she has been cleared by social work/whatever needs to for suicidal ideation has been seen by psychiatry, I do not believe that she is involuntarily detainable. Do I think that she is at risk? Yes. Numerous psychotropic medications, BuSpar/zolpidem are being held due to hepatotoxic effects. All is that this patient would do well to be started on duloxetine in place OF Prozac however this is not done as duloxetine also has hepatic clearance and we would want LFTs totally normalized before starting this. Utilizing temazepam for insomnia. For chronic pain patient has been started on MS Contin 15 mg every 8, she is pushing for short acting which I think all parties can agree is not a good plan for her. We are pushing dose of gabapentin. I am only giving her 10 day doses of everything I think this patient needs to be seen on a regular basis to avoid giving her a month's supply which almost certainly will not past and she will have falls and complications. As far as the safety of her home environment I observed her ambulating pretty well with physical therapy as long as she has not distracted. I were going to send up home PT/OT/nurse and a home health aide which patient tried to dismiss as she is going to some facility where this is all available. If that is the case that is fine but we want to make sure she has optimized her living situation. #Cognitive impairment-requesting speech do MoCA prior to discharge if possible. # Acute liver failure, POA. Active and continues to improve. f/u 1 week # Acetaminophen overdose, POA, acute improving by liver function tests. Active. Patient with acetaminophen level 109 at time of admission, 36 hrs after initial ingestion. Well above NAC treatment threshold. INR 1.41 below threshold for severe hepatic impairment NAC protocol - Mucomyst protocol completed 2-3 days ago - Holding hepatotoxic meds, this will need to be addressed following resolution of acute hepato-toxic period of Acetaminophen poisoning as much of her home psychiatric home regimen is being held in the face of active Suicidal ideation She denies suicidal ideation today and but will need a mental health evaluation from the [facility] time of the medically clear which will likely be tomorrow morning February 20. # Suicidal ideation, POA, resolved - Psychiatric consultation - case discussed with Dr. Zelaya -No changed antidepressant dosing at this time. # Depression, POA, acute on chronic. Active and stable -Holding home Buspar and clonazepam due to hepatic impairment -Continuing Fluoxetine at reduced dose due to hepatic impairment -As above psych consult will be very beneficial to this patient, plan is as above. Continue fluoxetine at current dosing. # Chronic pain and opioid dependence, present on admission, active. Review of lotion prescription database indicates that she filled 170 tablets of 325/ Vicodin. Opioid prescriptions suggest consumption of approximately 10 tablets per day with 3.25 g of daily acetaminophen. Usage does not seem compatible with a prolonged period of opioid deprivation which is what the patient reports. - Avoid hepatically metabolized opioids; fentanyl is preferred but hesitated to use long-acting patch due to her clinical instability - Morphine ER - dose equivalent to her previous hydrocodone would be 90-100 mg/ day - Reduced dose due to hepatic dysfunction - MS contin 15 mg TID, reduce further if encephalopathic - No breakthrough or additional opioids, do not call cross coverage at night to prescribe additional opioids No change to this working plan of stable opiates. # Insomnia with Narcolepsy, POA, chronic. Active stable -Holding home Zolpidem due to hepatotoxicity, holding home Modafinil as sleep aid is being held -Patient currently mildly somnolent due to overdose so sleep may not be an -Patient Rx temazepam #. Frequent falling. Multiple Rib fractures, POA, acute. Active. Basis for her falling episodes is unclear. Patient reports undiagnosed "neurological" condition. Opioid sedation likely cause. - PT evaluation for DC recommendations once acute phase of overdose has resolved. -Hypothyroid, POA and stable, POA and stable: Continue home [place] Thyroid 90 mg QAM - check TSH only while taking [place] Thyroid -GERD: Continue home Omeprazole -COPD, POA and stable: Continue home Prednisone, no outpatient breathing meds on record, will make DuoNeb available PRN Code Status: Patient is obligatory FULL CODE given suicide attempt Disposition: Inpatient, anticipated length of stay >2 midnights due to severity of condition and complexity of treatment plan. The [facility] consult prior to any discharge or AMA. We will repeat liver functions on February 20, if improved will medically cleared have the [facility] evaluate her for voluntary versus inpatient treatment if feasible or indicated at that time. Exam Vital Signs (Last) Date Time Temp Pulse Resp B/P Pulse Ox O2 Delivery O2 Flow Rate FiO2 02/20/17 13:37 36.8 91 17 130/65 92 Room Air Exam Gen.- A+ O 3 no apparent distress. Frail female Eyes- open conjunctiva clear, pupils equal nonicteric ENT- ears normal, nose normal, hearing intact Neck- supple/trach midline CVS-rate normal Lungs regular, nonlabored GI-flat Musc- moving 4 no obvious deformity -Patient furniture walks for stability is easily a standby assist without a walker, was observed ambulating around the unit with a walker and as long as she is concentrating on walking actually does pretty well. She has a tendency to shift to a shuffling gait and easily distracted which may make her prone to falls Neuro- cranial nerves II through XII intact to gross examination, nonfocal Unsteady gait Skin- warm and dry, no rashes/lesions/wounds noted Psych- pleasant and appropriate, manipulative Test 02/15/17 18:00 02/15/17 19:10 02/16/17 04:35 02/17/17 04:20 Hold Aldana Top Tube Received (Received) Salicylates Level < 3.0ug/mL (30-250) Alcohols < 10mg/dL (0-10) Hold Urine Received (Received) White Blood Count 7.2th/mm3 (3.8-10.1) Red Blood Count 3.71mil/mm3 (3.90-5.20) Hemoglobin 12.5g/dL (12.0-15.6) Hematocrit 36.7% (35.0-46.0) Mean Corpuscular Volume 98.9fL (81-100) Mean Corpuscular Hemoglobin 33.7pg (27.0-35.0) Mean Corpuscular Hemoglobin Concent 34.1% (32.0-37.0) Red Cell Distribution Width 15.9% (12.3-15.4) Platelet Count 324bil/L (150-400) Neutrophils (%) (Auto) 89.9% (40-74) Lymphocytes (%) (Auto) 6.6% (14-46) Monocytes (%) (Auto) 1.8% (4-12) Eosinophils (%) (Auto) 1.3% (0-5) Basophils (%) (Auto) 0.3% (0-3) Phosphorus Level 1.8mg/dL (2.5-4.9) Magnesium Level 1.8mg/dL (1.6-2.6) Thyroid Stimulating Hormone (TSH) 1.530uIU/mL (0.450-4.500) Test 02/19/17 08:45 02/20/17 12:55 Sodium Level 137mEq/L (134-144) Potassium Level 4.2mEq/L (3.5-5.2) Chloride Level 99mEq/L (97-108) Carbon Dioxide Level 27mmol/L (18-29) Blood Urea Nitrogen 11mg/dL (8-27) Creatinine 0.43mg/dL (0.57-1.00) Estimat Glomerular Filtration Rate 205mL/min (>59) Glucose Level 106mg/dL (60-99) Calcium Level 9.0mg/dL (8.5-10.1) Prothrombin Time 10.2sec (8.1-12.5) Prothromb Time International Ratio 0.95ratio Total Bilirubin 0.6mg/dL (0.0-1.2) Direct Bilirubin 0.2mg/dL (0.0-0.3) Aspartate Amino Transf (AST/SGOT) 44U/L (0-50) Alanine Aminotransferase (ALT/SGPT) 337U/L (0-32) Alkaline Phosphatase 82U/L (25-165) Total Protein 6.2g/dL (6.4-8.4) Albumin 3.9g/dL (3.4-5.0) Acetaminophen Level < 15.0ug/mL Rx (10-25) Discharge Medications Discharge Medications Calcitriol (Rocaltrol) 0.25 Mcg Capsule 0.25 MCG PO QAM (Reported) Fluoxetine (Fluoxetine) 10 Mg Capsule 10 MG PO QAM (Reported) Gabapentin (Neurontin) 300 Mg Capsule 300 MG PO TID Prescribed by: AIDEN RICH MD Morphine Sulfate ER (Morphine Sulfate ER) 15 Mg Tablet 15 MG PO Q8H Prescribed by: AIDEN RICH MD Omeprazole (Omeprazole) 20 Mg Capsule.dr 20 MG PO QAM (Reported) Prazosin (Prazosin) 2 Mg Capsule 4 MG PO TID (Reported) AN, NOON, HS Prednisone (PredniSONE) 5 Mg Tab 7.5 MG PO DAILYWM (Reported) Thyroid,Pork ([place] Thyroid) 90 Mg Tablet 90 MG PO QAM (Reported) As needed Gabapentin (Neurontin) 300 Mg Capsule 300 MG PO DAILY PRN PRN For Pain Prescribed by: AIDEN RICH MD Temazepam (Restoril) 7.5 Mg Capsule 7.5 MG PO HS PRN PRN Insomnia Prescribed by: AIDEN RICH MD Followup Plan Disposition: Patient going to independent living perhaps the home it is not entirely clear. I am making home health available as much as possible. Our preference would be to take this patient inpatient psychiatry and perhaps have some ongoing management however I do not think she is involuntarily detained above and that is what would be required. I do not think that she would willingly go to psychiatry. Follow-up plan See PCP KALEN needs follow-up LFTs Discharge Diet: No restrictions Discharge Activity: No restrictions Follow-up Provider: Sharon Gotti MD Follow-up with PCP in: Other (all for appointment) Time spent Greater than 30 minutes Attending Statement Reportedly patient has referral to pain specialist if not the pain specialist should be the narcotic prescribed primary care provider from this duty. Her behavior suggests poor insight and a propensity to overuse medications which will result in further falls, further pain and therefore more need for pain medication. copies to: Sharon Gotti MD, Andris E MD Feb 20, 2017 14:50
[2017-02-21 05:54] VITALS: BP 156/89; PULSE 70; RESP 16; O2SAT 93
[2017-02-21] MEDS: Morphine ER 15 mg (MS Contin) Tablet PO SCH (06:08)
[2017-02-21] MEDS: Pantoprazole 20 mg ER24 Tablet PO SCH (06:09)
[2017-02-21] MEDS: predniSONE 5 mg Tablet PO SCH (08:44)
--- NOTE | 2017-02-21 11:12 | PCM.PNMED ---
Subjective Date of Service Feb 21, 2017 Subjective Patient feeling better, very worried about pain medications. Was witnessed ambulating hallways yesterday surprisingly safely. No chest pain, no dyspnea, no nausea or vomiting Exam Vital Signs Vital Sign - Last Date Time Temp Pulse Resp B/P Pulse Ox O2 Delivery O2 Flow Rate FiO2 02/21/17 05:54 36.0 70 16 156/89 93 Room Air Intake and Output 02/20/17 02/20/17 02/21/17 Cumulative From/Thru 15:00 23:00 07:00 02/15/17 17:56 - 02/20/17 19:30 Intake Total 1040 ml 8288 ml Output Total 800 ml 11158 ml Balance 240 ml -2818 ml Intake Oral 1040 ml 6849 ml IV Total 1439 ml Output Urine Total 800 ml 19004 ml # Voids 45 # Bowel Movements 0 4 Exam Gen.- A+ O 3 no apparent distress. Frail female Eyes- open conjunctiva clear, pupils equal nonicteric ENT- ears normal, nose normal, hearing intact Neck- supple/trach midline CVS-rate normal Lungs regular, nonlabored GI-flat Musc- moving 4 no obvious deformity -Patient furniture walks for stability is easily a standby assist without a walker, was observed ambulating around the unit with a walker and as long as she is concentrating on walking actually does pretty well. She has a tendency to shift to a shuffling gait and easily distracted which may make her prone to falls Neuro- cranial nerves II through XII intact to gross examination, nonfocal Unsteady gait Skin- warm and dry, no rashes/lesions/wounds noted Psych- pleasant and appropriate, manipulative Repeat [place] CVA score 19/30 Lab and Diagnostics Result Diagram: 02/16/17 0435 02/19/17 0845 X-Rays, CTs and MRIs X-RAY CHEST ONE VIEW, PORTABLE IMPRESSION: No acute process. Right-sided rib fractures. Dictated by: Hans Beckford M.D. on 02/15/2017 at 20:24 Approved by: Hans Beckford M.D. on 02/15/2017 at 20:24 . 12-lead ECG NSR rate 69, no acute ischemic changes Assessment & Plan 76-year-old female who intentionally took Tylenol overdose liver functions were elevated got course of N-acetylcysteine and never had elevated INR. 02/19 she still had fairly significant transaminitis and detectable levels of acetaminophen however today 02/20 that has resolved. I spoke with poison control today 02/20 and they reassured me that if the acetaminophen was undetectable it may still take a little while for LFTs to totally normalized. The fact that they are trending downward is very reassuring and this should be followed up in the outpatient setting. At this point in time she has been cleared by social work/whatever needs to for suicidal ideation has been seen by psychiatry, I do not believe that she is involuntarily detainable. Do I think that she is at risk? Yes. Numerous psychotropic medications, BuSpar/zolpidem are being held due to hepatotoxic effects. All is that this patient would do well to be started on duloxetine in place OF Prozac however this is not done as duloxetine also has hepatic clearance and we would want LFTs totally normalized before starting this. Utilizing temazepam for insomnia. For chronic pain patient has been started on MS Contin 15 mg every 8, she is pushing for short acting which I think all parties can agree is not a good plan for her. We are pushing dose of gabapentin. I am only giving her 10 day doses of everything I think this patient needs to be seen on a regular basis to avoid giving her a month's supply which almost certainly will not past and she will have falls and complications. As far as the safety of her home environment I observed her ambulating pretty well with physical therapy as long as she has not distracted. I were going to send up home PT/OT/nurse and a home health aide which patient tried to dismiss as she is going to some facility where this is all available. If that is the case that is fine but we want to make sure she has optimized her living situation. 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 02/21 home health has been arranged. Prescriptions written for 10 days, there are concerns already coming back to me that this is not long enough. We are working on making sure there are arrangements to see either primary care but more importantly pain career advisor within the next 10 days as patient needs follow-up on LFTs, and probably conversion to a different medication regimen. She is already talking about going back on short acting medications and I will not be surprised that she is using both short-acting and long-acting. Whether this is related to cognitive impairment, ongoing pain in this usage versus others not entirely clear. I have had discussion with herself and her significant other that she should not be using the short-acting as the morphine should be sufficient and that we would like to go to a longer acting regimen such as I fentanyl patch when the liver clears up. He seems to understand. She seems to perseverate on the need for hydrocodone short acting and her general dislike of morphine. Her [place] CVA score is consistent 19 out of 30 again. #Cognitive impairment-requesting speech do MoCA 19 of 30 again 02/20. Short-term memory is a major problem. # Acute liver failure, POA. Active and continues to improve. f/u 1 week # Acetaminophen overdose, POA, acute improving by liver function tests. Active. Patient with acetaminophen level 109 at time of admission, 36 hrs after initial ingestion. Well above NAC treatment threshold. INR 1.41 below threshold for severe hepatic impairment NAC protocol - Mucomyst protocol completed 2-3 days ago - Holding hepatotoxic meds, this will need to be addressed following resolution of acute hepato-toxic period of Acetaminophen poisoning as much of her home psychiatric home regimen is being held in the face of active Suicidal ideation -Patient has repeatedly denied current suicidal ideation and was cleared by P 02/20 # Suicidal ideation, POA, resolved - Psychiatric consultation - case discussed with Dr. Zelaya -No changed antidepressant dosing at this time. # Depression, POA, acute on chronic. Active and stable -Holding home Buspar and clonazepam due to hepatic impairment -Continuing Fluoxetine at reduced dose due to hepatic impairment -As above psych consult will be very beneficial to this patient, plan is as above. Continue fluoxetine at current dosing. # Chronic pain and opioid dependence, present on admission, active. Review of lotion prescription database indicates that she filled 170 tablets of 325/ Vicodin. Opioid prescriptions suggest consumption of approximately 10 tablets per day with 3.25 g of daily acetaminophen. Usage does not seem compatible with a prolonged period of opioid deprivation which is what the patient reports. - Avoid hepatically metabolized opioids; fentanyl is preferred but hesitated to use long-acting patch due to her clinical instability - Morphine ER - dose equivalent to her previous hydrocodone would be 90-100 mg/ day - Reduced dose due to hepatic dysfunction - MS contin 15 mg TID, reduce further if encephalopathic - No breakthrough or additional opioids, do not call cross coverage at night to prescribe additional opioids # Insomnia with Narcolepsy, POA, chronic. Active stable -Holding home Zolpidem due to hepatotoxicity, holding home Modafinil as sleep aid is being held -Patient currently mildly somnolent due to overdose so sleep may not be an -Patient Rx temazepam #. Frequent falling. Multiple Rib fractures, POA, acute. Active. Basis for her falling episodes is unclear. Patient reports undiagnosed "neurological" condition. Opioid sedation likely cause. - PT evaluation for DC recommendations once acute phase of overdose has resolved. -Hypothyroid, POA and stable, POA and stable: Continue home [place] Thyroid 90 mg QAM - check TSH only while taking [place] Thyroid -GERD: Continue home Omeprazole -COPD, POA and stable: Continue home Prednisone, no outpatient breathing meds on record, will make DuoNeb available PRN Code Status: Patient is obligatory FULL CODE given suicide attempt GI Prophylaxis: Proton Pump Inhibitor VTE Prophylaxis: Other (Patient with hepatic dysfunciton that is likely to inhibit coagulation) VTE Mechanical Devices: Intermittant Pneumatic CD Resuscitation Status: CPR: Attempt Resuscitation Malcolm Cunha MD Feb 21, 2017 11:12
== END 2017-02-21 11:35 | disposition home health service (06) | DRG 917 ==
LOC: EDSEX 17:54 → SED 17:54 → EDBD 17:54 → PCC 20:29 → MPC 02-19 16:38
PROVIDERS: ADMIT Internal Medicine; ATTEND Internal Medicine
DX: T39.1X2A Poisoning by 4-Aminophenol derivatives, intentional self-harm, initial encounter (principal); G93.40 Encephalopathy, unspecified; R45.851 Suicidal ideations; E87.1 Hypo-osmolality and hyponatremia; S22.41XA Multiple fractures of ribs, right side, initial encounter for closed fracture; F11.20 Opioid dependence, uncomplicated; F33.2 Major depressive disorder, recurrent severe without psychotic features; G89.29 Other chronic pain; G47.419 Narcolepsy without cataplexy; F51.01 Primary insomnia; E03.9 Hypothyroidism, unspecified; K21.9 Gastro-esophageal reflux disease without esophagitis; J44.9 Chronic obstructive pulmonary disease, unspecified; R29.6 Repeated falls; K71.10 Toxic liver disease with hepatic necrosis, without coma; Y92.9 Unspecified place or not applicable; F41.9 Anxiety disorder, unspecified